=== PATIENT | male | born 1940 | race American Indian/Alaskan Native ===

== ENCOUNTER 2016-07-19 07:30 | Outpatient (CLI) | payer MEDICARE ==
--- NOTE | 2016-07-19 08:56 | Cat Scan Report ---
CT CHEST WITHOUT CONTRAST: HISTORY: Pulmonary nodule. TECHNIQUE: Helical CT with sagittal and coronal reformatted images. FINDINGS: No comparison at this facility. The lung parenchyma is normal. No interstitial or air space disease is appreciated. A 4 mm noncalcified but well circumscribed pulmonary nodule is noted in the posterolateral left lower lobe on image 157, series 2. No other pulmonary nodule. Overall this has a benign appearance and may represent a noncalcified granuloma. No suspicious spiculated nodule/mass. The remainder of the lungs are clear. The thyroid gland, tracheobronchial tree, esophagus, heart, pericardium, and mediastinal vessels are unremarkable. No thoracic adenopathy is visualized. There is mild thoracic spondylosis but no evidence for fracture or suspicious bony lesion. IMPRESSION: 4 mm left lower lobe nodule with benign appearance as outlined above. Consider followup in 6 months.
== END 2016-07-19 07:31 | disposition home or self-care (01) ==
LOC: CT 07:30
PROVIDERS: ATTEND Specialist
DX: R91.1 Solitary pulmonary nodule (principal); M47.894 Other spondylosis, thoracic region
CPT/HCPCS: 71250

== ENCOUNTER 2019-12-06 09:33 | Outpatient (CLI) | payer MEDICARE ==
--- NOTE | 2019-12-06 14:31 | Cat Scan Report ---
CT ABDOMEN AND PELVIS WITHOUT CONTRAST INDICATION / CLINICAL INFORMATION: PELVIC AND PERINEAL PAIN. TECHNIQUE: Axial CT images were obtained through the abdomen and pelvis without IV contrast. Sagittal and guerra l reformatted images. All CT scans at this location are performed using CT dose reduction for ALARA b y means of automated exposure control. COMPARISON: None available. FINDINGS: LOWER CHEST: No significant abnormality. LIVER: No significant abnormality. GALLBLADDER: No significant abnormality. BILE DUCTS: No significant abnormality. PANCREAS: No significant abnormality. SPLEEN: No significant abnormality. ADRENALS: No significant abnormality. RIGHT KIDNEY and URETER: There are 3 simple cysts in the right kidney with the largest measuring 2.6 cm near the superior pole. There appear to be a few punctate calyceal stones in the right kidney. No ureteral stones. LEFT KIDNEY and URETER: There are 2 simple cysts in the left kidney with the largest measuring 2.9 cm at the superior pole. There appear to be a few punctate calyceal stones in the left kidney. No urete ral stones. STOMACH and SMALL BOWEL: No significant abnormality. COLON: No significant abnormality. APPENDIX: No significant abnormality. PERITONEUM: No free fluid. No free air. No fluid collection. LYMPH NODES: No significant adenopathy. AORTA and ARTERIES: No significant abnormality. IVC and VEINS: No significant abnormality. URINARY BLADDER: No significant abnormality. REPRODUCTIVE ORGANS: The prostate gland is markedly enlarged measuring 7.0 cm in diameter. ADDITIONAL FINDINGS: None. SKELETAL SYSTEM: Moderate degenerative changes are noted in the lumbar spine and bilateral hips. No f racture or suspicious bony lesion. IMPRESSION: Bilateral simple renal cysts. Punctate bilateral renal stones. No hydronephrosis. Enlarged prostate gland. 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 No acute inflammatory process appreciated. Signer Name: Patricio Schmidt Jr, MD Signed: 12/06/2019 2:27 PM Workstation Name: [id number]
== END 2019-12-06 09:34 | disposition home or self-care (01) ==
LOC: CT 09:33
PROVIDERS: ATTEND Urology
DX: R10.2 Pelvic and perineal pain (principal)
CPT/HCPCS: 74176